=== PATIENT | male | born 1970 | race Caucasian/White ===

== ENCOUNTER → 2016-06-14 | Outpatient (CLI) | payer BC ==
[2016-06-14 08:33] LABS: CHLORIDE,CL 107 mmol/L (98-110); SODIUM,NA 140 mmol/L (136-146)
== END | disposition home or self-care (01) ==
LOC: MW.CHRC 07:40
PROVIDERS: ATTEND Family Medicine
DX: R68.82 Decreased libido (principal); R53.83 Other fatigue
CPT/HCPCS: 36415; 80053; 80061; 82607; 83036; 84402; 84403; 84439; 84443; 85025

== ENCOUNTER → 2016-06-26 | Outpatient (CLI) | payer BC | END | disposition home or self-care (01) | LOC: MW.CHRC 07:30 | PROVIDERS: ATTEND Family Medicine | DX: R68.82 Decreased libido (principal) | CPT/HCPCS: 36415; 83001; 83002; 84402; 84403 ==

== ENCOUNTER → 2016-08-09 | Outpatient (CLI) | payer BC | LOC: MW.CHRC 08:09 | PROVIDERS: ATTEND Family Medicine | DX: E29.1 Testicular hypofunction (principal) | CPT/HCPCS: 36415; 84402; 84403 ==

== ENCOUNTER 2017-02-19 15:00 | Emergency (ER) | payer BC ==
[2017-02-19] MEDS ORDERED: Ondansetron 4 MG/2 ML SDV IVPUSH ONE (15:38)
[2017-02-19] MEDS ORDERED: Ketorolac 30 MG/ML SDV IVPUSH ONE (15:38)
[2017-02-19] MEDS ORDERED: Sodium Chloride 0.9% 1,000 ML IV ONE (15:38)
--- NOTE | 2017-02-19 15:44 | EDM.PDOC ---
ED HPI GENERAL MEDICAL PROBLEM - General Chief Complaint: Abdominal Pain Stated Complaint: HEADACHE/VOMITING/DIARRHEA Time Seen by Provider: 02/19/17 15:02 Source of Information: Reports: Patient History Limitations: Reports: No Limitations - History of Present Illness INITIAL COMMENTS - FREE TEXT/NARRATIVE: HISTORY AND PHYSICAL: History of present illness: Patient is a 46-year-old male who presents to the emergency room with complaints of nausea, vomiting, diarrhea since night. He states he was concerned that he had drank too much caffeine night as he had 3-4 "5 hour energy drinks" and a [employer] drink that day. All day Sunday and Sunday he states he had these symptoms and was concerned he had the "flu". Started to feel better on Sunday but woke up this morning at 4 AM with the symptoms having returned. He denies any fever, chills, chest pain, shortness of breath or abdominal pain. History of ADHD really takes Vyvanse. Denies any drug or alcohol abuse. Received the [id number] influenza vaccine, 2 weeks ago. Review of systems: As per history of present illness and below otherwise all systems reviewed and negative. Past medical history: As per history of present illness and as reviewed below otherwise noncontributory. Surgical history: As per history of present illness and as reviewed below otherwise noncontributory. Social history: No reported history of drug or alcohol abuse. Family history: As per history of present illness and as reviewed below otherwise noncontributory. Physical exam: Gen.: Nontoxic appearing 46-year-old male. Alert and oriented. HEENT: Atraumatic, normocephalic, pupils reactive, negative for conjunctival pallor or scleral icterus, mucous membranes moist, throat clear, neck supple, nontender, trachea midline. Lungs: Clear to auscultation, breath sounds equal bilaterally, chest nontender. Heart: S1S2, regular, negative for clicks, rubs, or JVD. Abdomen: Soft, nondistended, nontender. Negative for masses or hepatosplenomegaly. Negative for costovertebral tenderness. Pelvis: Stable nontender. Genitourinary: Deferred. Rectal: Deferred. Extremities: Atraumatic, negative for cords or calf pain. Neurovascular unremarkable. Neuro: Awake, alert, oriented. Cranial nerves II through XII unremarkable. Cerebellum unremarkable. Motor and sensory unremarkable throughout. Exam nonfocal. Diagnostics: CBC, CMP, influenza Therapeutics: IV fluid, Toradol, Zofran Impression: Viral gastroenteritis Plan: 1. Please take the rest the day to rest. Advance your diet as tolerated. Drink plenty of fluids to prevent dehydration. 2. Limit your caffeine intake as this will increase your diarrhea. 3. Follow-up with your primary care provider in the next 1-2 days. Return to the ED as needed and as discussed. Definitive disposition and diagnosis as appropriate pending reevaluation and review of above. Onset Date: 02/15/17 Duration: Day(s): Location: Reports: Generalized - Related Data Allergies Allergy/AdvReac Type Severity Reaction Status Date / Time No Known Allergies Allergy Verified 02/19/17 15:30 Home Meds: Home Meds Lisdexamfetamine Dimesylate [Vyvanse] 30 mg PO DAILY 02/19/17 [History] Past Medical History Psychiatric History: Reports: ADD - Past Surgical History GI Surgical History: Reports: Other (See Below) Other GI Surgeries/Procedures: laparotomy due to trauma Musculoskeletal Surgical History: Reports: Other (See Below) Other Musculoskeletal Surgeries/Procedures:: left wrist, Left tendon repair Social & Family History - Family History Family Medical History: Noncontributory - Tobacco Use Smoking Status *Q: Never Smoker Second Hand Smoke Exposure: No - Caffeine Use Caffeine Use: Reports: Energy Drinks - Recreational Drug Use Recreational Drug Use: No ED ROS GENERAL - Review of Systems Review Of Systems: ROS reveals no pertinent complaints other than HPI. ED EXAM, GI/ABD - Physical Exam Exam: See Below (See dictation) Course - Vital Signs Last Recorded V/S: Last Vital Signs Temp 36.8 C 02/19/17 15:25 Pulse 113 H 02/19/17 15:25 Resp 18 02/19/17 15:25 BP 140/90 02/19/17 15:25 Pulse Ox 95 02/19/17 15:25 - Orders/Labs/Meds Orders: Active Orders 24 hr Category Date Time Status CULTURE STOOL + CAMPY+SHIGATOX [RM] Stat Lab 02/19/17 15:38 Uncollected Labs: Laboratory Tests 02/19/17 02/19/17 Range/Units 15:46 15:46 WBC 7.53 (4.0-11.0) K/uL RBC 5.10 (4.50-5.90) M/uL Hgb 15.7 (13.0-17.0) g/dL Hct 45.0 (38.0-50.0) % MCV 88.2 (80.0-98.0) fL MCH 30.8 (27.0-32.0) pg MCHC 34.9 (31.0-37.0) g/dL RDW Std Deviation 41.6 (28.0-62.0) fl RDW Coeff of Malgorzata 13 (11.0-15.0) % Plt Count 274 (150-400) K/uL MPV 9.30 (7.40-12.00) fL Neut % (Auto) 72.8 (48.0-80.0) % Lymph % (Auto) 17.0 (16.0-40.0) % [place] % (Auto) 6.8 (0.0-15.0) % Eos % (Auto) 2.9 (0.0-7.0) % Baso % (Auto) 0.5 (0.0-1.5) % Neut # (Auto) 5.5 (1.4-5.7) K/uL Lymph # (Auto) 1.3 (0.6-2.4) K/uL [place] # (Auto) 0.5 (0.0-0.8) K/uL Eos # (Auto) 0.2 (0.0-0.7) K/uL Baso # (Auto) 0.0 (0.0-0.1) K/uL Nucleated RBC % 0.0 /100WBC Nucleated RBCs # 0 K/uL Sodium 139 (136-146) mmol/L Potassium 3.5 (3.5-5.1) mmol/L Chloride 103 (98-110) mmol/L Carbon Dioxide 25 (21-31) mmol/L BUN 10 (6.0-23.0) mg/dL Creatinine 0.8 (0.6-1.5) mg/dL Est Cr Clr Drug Dosing 124.19 mL/min Estimated GFR (MDRD) > 60.0 ml/min Glucose 144 H (60-110) mg/dL Calcium 9.3 (8.8-10.8) mg/dL Total Bilirubin 0.5 (0.1-1.5) mg/dL AST 22 (5-40) IU/L ALT 40 (8-54) IU/L Alkaline Phosphatase 53 (40-150) Total Protein 7.4 (6.0-8.0) g/dL Albumin 4.0 (3.5-5.0) g/dL Globulin 3.4 (2.0-3.5) g/dL Albumin/Globulin Ratio 1.2 L (1.3-2.8) Meds: Medications Discontinued Medications Generic Name Dose Route Start Last Admin Trade Name Freq PRN Reason Stop Dose Admin Sodium Chloride 1,000 mls @ 999 mls/hr 02/19/17 15:38 02/19/17 15:50 Normal Saline IV 02/19/17 16:38 999 mls/hr STAT ONE Administration Ketorolac Tromethamine 30 mg 02/19/17 15:38 02/19/17 15:54 Toradol IVPUSH 02/19/17 15:39 30 mg ONETIME ONE Administration Ondansetron HCl 4 mg 02/19/17 15:38 02/19/17 15:54 Zofran IVPUSH 02/19/17 15:39 4 mg ONETIME ONE Administration Departure - Departure Time of Disposition: 16:53 Disposition: Home, Self-Care 01 Clinical Impression: Viral gastroenteritis - Discharge Information Instructions: Viral Gastroenteritis, Adult, [id number] Referrals: Garfield Pérez [Primary Care Provider] - Forms: ED Department Discharge Additional Instructions: My general discharge The following information is given to patients seen in the emergency department who are being discharged to home. This information is to outline your options for follow-up care. We provide all patients seen in our emergency department with a follow-up referral. The need for follow-up, as well as the timing and circumstances, are variable depending upon the specifics of your emergency department visit. If you don't have a primary care physician on staff, we will provide you with a referral. We always advise you to contact your personal physician following an emergency department visit to inform them of the circumstance of the visit and for follow-up with them and/or the need for any referrals to a consulting specialist. The emergency department will also refer you to a specialist when appropriate. This referral assures that you have the opportunity for follow-up care with a specialist. All of these measure are taken in an effort to provide you with optimal care, which includes your follow-up. Under all circumstances we always encourage you to contact your private physician who remains a resource for coordinating your care. When calling for follow-up care, please make the office aware that this follow-up is from your recent emergency room visit. If for any reason you are refused follow-up, please contact the [facility] Emergency Department at and asked to speak to the emergency department charge nurse. [facility] Primary Care [address] [place] [id number] 1. Please take the rest the day to rest. Advance your diet as tolerated. Drink plenty of fluids to prevent dehydration. 2. Limit your caffeine intake as this will increase your diarrhea. 3. Follow-up with your primary care provider in the next 1-2 days. Return to the ED as needed and as discussed. - My Orders Last 24 Hours: My Active Orders 02/19/17 15:38 CULTURE STOOL + CAMPY+SHIGATOX [RM] Stat - Assessment/Plan Last 24 Hours: My Active Orders 02/19/17 15:38 CULTURE STOOL + CAMPY+SHIGATOX [RM] Stat
[2017-02-19 16:23] LABS: CHLORIDE,CL 103 mmol/L (98-110); SODIUM,NA 139 mmol/L (136-146)
== END 2017-02-19 17:12 | disposition home or self-care (01) ==
LOC: MW.ED 15:00
DX: A08.4 Viral intestinal infection, unspecified (principal)
CPT/HCPCS: 36415; 80053; 85025; 87804; 96361; 96374; 96375; 99283; J1885; J2405; J7040; 99284

== ENCOUNTER 2017-03-01 19:15 | Emergency (ER) | payer BC ==
--- NOTE | 2017-03-01 19:22 | EDM.PDOC ---
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 Past medical history: As per history of present illness and as reviewed below otherwise noncontributory. Surgical history: As per history of present illness and as reviewed below otherwise noncontributory. Social history: No reported history of drug or alcohol abuse. Family history: As per history of present illness and as reviewed below otherwise noncontributory. Physical exam: Alert and oriented gentleman. answers questions appropriately, in full sentences , without any shortness of breath. skin is warm and dry. HEENT: Atraumatic, normocehpalic, pupils reactive, negative for conjunctival pallor or scleral icterus, mucous membranes moist, throat clear, neck supple, nontender, trachea midline. Lungs: Clear to auscultation, breath sounds equal bilaterally, chest non tender. Shallow breath sounds noted , slight crackles cleared with cough Heart: S1S2, regular, negative for clicks, rubs, or JVD. Abdomen: Soft, nondistended, nontender. Negative for masses or hepatossplenmegaly. Negative for costovertebral tenderness. Pelvis: Stable nontender. Genitourinary: Deferred. Rectal: Deferred Extremities: Atraumatic, negative for cords or calf pain. Neurovascular unremarkable. Neuro: Awake, alert, oriented. Cranial nerves II through XII unremarkable. Cerebellum unremarkable. Motor and sensory unremarkable throughout. Exam nonfocal. Diagnostics: Influenza, cbc, chest x-ray] Therapeutics: [] Impression: [Bronchitis] Plan: [Discharge to home Medrol Dosepak Azithromycin] Definitive disposition and diagnosis as appropriate pending reevaluation and review of above. Onset: Today, Sudden Duration: Hour(s):, Getting Worse Location: Reports: Head, Face, Chest - Related Data Allergies Allergy/AdvReac Type Severity Reaction Status Date / Time No Known Allergies Allergy Verified 03/01/17 19:31 Home Meds: Home Meds Lisdexamfetamine Dimesylate [Vyvanse] 30 mg PO DAILY 02/19/17 [History] Azithromycin [Zithromax] 250 mg PO DAILY #6 tablet 03/01/17 [Rx] methylPREDNISolone [Medrol] 4 mg PO ASDIRECTED #1 dosepk 03/01/17 [Rx] Past Medical History Psychiatric History: Reports: ADD - Past Surgical History GI Surgical History: Reports: Other (See Below) Other GI Surgeries/Procedures: laparotomy due to trauma Musculoskeletal Surgical History: Reports: Other (See Below) Other Musculoskeletal Surgeries/Procedures:: left wrist, Left tendon repair Social & Family History - Family History Family Medical History: Noncontributory - Tobacco Use Smoking Status *Q: Never Smoker Second Hand Smoke Exposure: No - Caffeine Use Caffeine Use: Reports: Energy Drinks - Recreational Drug Use Recreational Drug Use: No ED ROS GENERAL - Review of Systems Review Of Systems: ROS reveals no pertinent complaints other than HPI. ED EXAM, GENERAL - Physical Exam Exam: See Below (see dictation) Course - Vital Signs Last Recorded V/S: Last Vital Signs Temp 36.8 C 03/01/17 19:23 Pulse 79 03/01/17 19:23 Resp 18 03/01/17 19:23 BP 150/87 H 03/01/17 19:23 Pulse Ox 97 03/01/17 19:23 - Orders/Labs/Meds Orders: Active Orders 24 hr Category Date Time Status Chest 2V [CR] Stat Exams 03/01/17 20:04 Taken Labs: Laboratory Tests 03/01/17 03/01/17 Range/Units 20:15 20:15 WBC 8.31 (4.0-11.0) K/uL RBC 4.52 (4.50-5.90) M/uL Hgb 13.8 (13.0-17.0) g/dL Hct 39.9 (38.0-50.0) % MCV 88.3 (80.0-98.0) fL MCH 30.5 (27.0-32.0) pg MCHC 34.6 (31.0-37.0) g/dL RDW Std Deviation 42.9 (28.0-62.0) fl RDW Coeff of Malgorzata 13 (11.0-15.0) % Plt Count 245 (150-400) K/uL MPV 9.60 (7.40-12.00) fL Neut % (Auto) 76.0 (48.0-80.0) % Lymph % (Auto) 13.5 L (16.0-40.0) % [place] % (Auto) 8.8 (0.0-15.0) % Eos % (Auto) 1.6 (0.0-7.0) % Baso % (Auto) 0.1 (0.0-1.5) % Neut # (Auto) 6.3 H (1.4-5.7) K/uL Lymph # (Auto) 1.1 (0.6-2.4) K/uL [place] # (Auto) 0.7 (0.0-0.8) K/uL Eos # (Auto) 0.1 (0.0-0.7) K/uL Baso # (Auto) 0.0 (0.0-0.1) K/uL Nucleated RBC % 0.0 /100WBC Nucleated RBCs # 0 K/uL Sodium 134 L (136-146) mmol/L Potassium 3.7 (3.5-5.1) mmol/L Chloride 101 (98-110) mmol/L Carbon Dioxide 25 (21-31) mmol/L BUN 2 L (6.0-23.0) mg/dL Creatinine 0.7 (0.6-1.5) mg/dL Est Cr Clr Drug Dosing 141.93 mL/min Estimated GFR (MDRD) > 60.0 ml/min Glucose 102 (60-110) mg/dL Calcium 9.5 (8.8-10.8) mg/dL Total Bilirubin 1.1 (0.1-1.5) mg/dL AST 35 (5-40) IU/L ALT 46 (8-54) IU/L Alkaline Phosphatase 54 (40-150) Total Protein 7.3 (6.0-8.0) g/dL Albumin 4.1 (3.5-5.0) g/dL Globulin 3.2 (2.0-3.5) g/dL Albumin/Globulin Ratio 1.3 (1.3-2.8) Departure - Departure Time of Disposition: 21:05 Disposition: Home, Self-Care 01 Condition: Good Clinical Impression: Bronchitis - Discharge Information Prescriptions: Azithromycin [Zithromax] 250 mg PO DAILY #6 tablet methylPREDNISolone [Medrol] 4 mg PO ASDIRECTED #1 dosepk Referrals: Garfield Pérez [Primary Care Provider] - - My Orders Last 24 Hours: My Active Orders 03/01/17 20:04 Chest 2V [CR] Stat - Assessment/Plan Last 24 Hours: My Active Orders 03/01/17 20:04 Chest 2V [CR] Stat
[2017-03-01 20:45] LABS: CHLORIDE,CL 101 mmol/L (98-110); SODIUM,NA 134 mmol/L (136-146)
--- NOTE | 2017-03-02 15:57 | CR ---
EXAM DATE: 03/01/17 PATIENT'S AGE: 46 Patient: RAYO KLEIN Facility: [place], [place] Site . Site : 1970 Study: XRay Chest [id number] 8:26:07 PM Ordering Physician: Doctor David Final Report: INDICATION: cough, cold/flu like TECHNIQUE: Chest 2 views COMPARISON: None FINDINGS: Cardiovascular and mediastinum: Heart size and vasculature are normal in caliber and appearance. Mediastinum is within normal limits. Lungs and pleural spaces: No focal consolidation. No sign of pleural effusion. No pneumothorax. Bones and soft tissues: No significant findings. IMPRESSION: No acute cardiopulmonary disease Dictated by Brijesh Henry MD @ 03/01/2017 8:58:02 PM Dictated by: Brijesh Henry MD @ 03/01/2017 20:58:08 (Electronic Signature) Report Signed by Proxy. [email or web address]
== END 2017-03-01 21:29 | disposition home or self-care (01) ==
LOC: MW.ED 19:15
DX: J40 Bronchitis, not specified as acute or chronic (principal); Z79.2 Long term (current) use of antibiotics; Z79.899 Other long term (current) drug therapy
CPT/HCPCS: 36415; 71020; 71020-26; 80053; 85025; 87804; 99283